=== PATIENT | female | born 1960 ===

== ENCOUNTER 2020-03-13 09:03 | Outpatient (REF) | payer BC, SELFPAY ==
--- NOTE | 2020-03-13 09:08 | XR_ITS ---
EXAMINATION: CR X-RAY BILATERAL KNEE 3 VIEW, STANDING CLINICAL INFORMATION: Bilateral knee pain. COMPARISON: None TECHNIQUE: Lateral and axial as well as standing AP views of both knees were obtained. FINDINGS: Mild tricompartmental degenerative joint changes are seen. There is no acute fracture, dislocation or joint effusion. The soft tissues are unremarkable. XR/XR knee RT 2V IMPRESSION: Mild tricompartmental degenerative joint changes bilaterally suggest mild osteoarthritis.
--- NOTE | 2020-03-13 09:08 | XR_ITS ---
EXAMINATION: CR X-RAY BILATERAL KNEE 3 VIEW, STANDING CLINICAL INFORMATION: Bilateral knee pain. COMPARISON: None TECHNIQUE: Lateral and axial as well as standing AP views of both knees were obtained. FINDINGS: Mild tricompartmental degenerative joint changes are seen. There is no acute fracture, dislocation or joint effusion. The soft tissues are unremarkable. XR/XR knee LT 2V IMPRESSION: Mild tricompartmental degenerative joint changes bilaterally suggest mild osteoarthritis.
--- NOTE | 2020-03-13 09:08 | XR_ITS ---
EXAMINATION: CR X-RAY BILATERAL KNEE 3 VIEW, STANDING CLINICAL INFORMATION: Bilateral knee pain. COMPARISON: None TECHNIQUE: Lateral and axial as well as standing AP views of both knees were obtained. FINDINGS: Mild tricompartmental degenerative joint changes are seen. There is no acute fracture, dislocation or joint effusion. The soft tissues are unremarkable. XR/XR knee standing BI IMPRESSION: Mild tricompartmental degenerative joint changes bilaterally suggest mild osteoarthritis.
== END 2020-03-13 09:04 | disposition home or self-care (01) ==
LOC: HO.HOSX 09:03
PROVIDERS: PCP Internal Medicine Endocrinology, Diabetes & Metabolism; Visit Provider Orthopaedic Surgery
DX: M25.562 Pain in left knee (principal); M25.561 Pain in right knee
CPT/HCPCS: 20610; 73560; 73565; J1040

== ENCOUNTER → 2020-08-23 10:41 | Outpatient (BNVA) | payer BC, SELFPAY | PROVIDERS: Visit Provider Orthopaedic Surgery | DX: M17.11 Unilateral primary osteoarthritis, right knee (principal) | CPT/HCPCS: 20610; J1040 ==

== ENCOUNTER 2023-01-25 12:27 | Outpatient (REF) | payer BC, SELFPAY ==
--- NOTE | ~2023-01-25 | XR_ITS ---
Examination: Bilateral knees TECHNIQUE: AP bilateral weightbearing, left and right knees lateral, sunrise views CLINICAL INFORMATION: pain COMPARISON: February 2020. FINDINGS: There is no significant narrowing of the joint space seen on weightbearing view. There is narrowing of patellofemoral compartments bilaterally with patellar spurring. There is no fracture or subluxation seen. There is no chondrocalcinosis. XR/XR knee standing BI IMPRESSION: Degenerative changes in the patellofemoral compartments bilaterally.
--- NOTE | ~2023-01-25 | XR_ITS ---
Examination: Bilateral knees TECHNIQUE: AP bilateral weightbearing, left and right knees lateral, sunrise views CLINICAL INFORMATION: pain COMPARISON: February 2020. FINDINGS: There is no significant narrowing of the joint space seen on weightbearing view. There is narrowing of patellofemoral compartments bilaterally with patellar spurring. There is no fracture or subluxation seen. There is no chondrocalcinosis. XR/XR knee RT 2V IMPRESSION: Degenerative changes in the patellofemoral compartments bilaterally.
--- NOTE | ~2023-01-25 | XR_ITS ---
Examination: Bilateral knees TECHNIQUE: AP bilateral weightbearing, left and right knees lateral, sunrise views CLINICAL INFORMATION: pain COMPARISON: February 2020. FINDINGS: There is no significant narrowing of the joint space seen on weightbearing view. There is narrowing of patellofemoral compartments bilaterally with patellar spurring. There is no fracture or subluxation seen. There is no chondrocalcinosis. XR/XR knee LT 2V IMPRESSION: Degenerative changes in the patellofemoral compartments bilaterally.
== END 2023-01-25 12:28 | disposition home or self-care (01) ==
LOC: HO.HOSX 12:27
PROVIDERS: Visit Provider Orthopaedic Surgery
DX: M17.0 Bilateral primary osteoarthritis of knee (principal); M25.461 Effusion, right knee; M25.462 Effusion, left knee
CPT/HCPCS: 73560; 73565

== ENCOUNTER 2023-01-25 14:26 | Outpatient (AMB) | payer BC, SELFPAY ==
--- NOTE | 2023-01-25 14:36 | A.OFFVIS_ITS ---
Intake Intake Visit Reasons: OV - B/L Knee OA Intake Note: Rody is a 62 year old female who presents today for a follow up of her bilateral knee OA. Last Injection in the right knee done 08/23/20 and bilaterally on 03/13/2020. Patient reports that the injections have been helpful. She explains that she is not here to have injections done but to discuss the status of the knees. She feels that the left knee especially has progressed. Allergies Beta-Blockers (Beta-Adrenergic Bloc Allergy (Verified 03/13/20 09:28) low blood pressure HPI OV - B/L Knee OA HPI Details Rody is a 62 year old woman who presents to discuss her bilateral knee OA. She was last seen by Dr. Hankins on 08/23/20 and received a right knee injection. She complains of pain with daily activity, worse with using stairs. She feels her left knee has gotten worse than her right since she was last seen. She walks using a cane and feels that her knees are swollen at times. She wears a knee brace occasionally when out of the house, which she finds helpful. She has a hx of relief from steroid injections in the past, but she would like to discuss how her knees have progressed. 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 Review of Systems Const All systems reviewed & are unremarkable except as noted in HPI and below Physical Exam Const General: no acute distress, alert and awake Orientation/consciousness: patient oriented x3 HEENT Head: Yes normocephalic and Yes atraumatic Eyes EOM: EOMs intact bilaterally Resp Effort & Inspection: normal respiratory effort and able to speak in complete sentences Cardio Jugular venous distension: no JVD Skin General skin exam: turgor normal Rashes: no rashes Neuro General: patient oriented x3 Extrem Other: Bilateral Knees: full ROM bilateral knees TTP medial compartments bilaterally Psych Appearance: grossly normal Affect: normal affect Attitude: cooperative Results Reviewed Results Reviewed: I personally reviewed relevant radiographs Mild- moderate bilateral knee OA Assessment & Plan Assessment & Plan (1) Primary osteoarthritis of knees, bilateral: Code(s): M17.0 - Bilateral primary osteoarthritis of knee Plan: This is a 62 year old woman with bilateral knee OA, L>R, with mild effusion. She has pain with daily activity, worse with using stairs. She ambulates with an assistive cane and has a hx of good relief from steroid injections done by Dr. Hankins in the past. She occasionally wears a knee brace. I discussed her diagnosis and treatment options. I recommend NSAIDs and she continue activity as tolerated. She declined any injections today, if her symptoms persist or worsen she can follow up to discuss injections. otherwisee she will follow up prn. (2) Bilateral knee effusions: Code(s): M25.461 - Effusion, right knee; M25.462 - Effusion, left knee Plan Scribed for Guillermo Barakat MD by Dar Riley, medical billing representative, on 01/25/23 at 2:55 PM, EST. Orders: Orders XR knee standing BI 01/25/23 M25.569 - Pain in unspecified knee XR knee RT 2V 01/25/23 M25.569 - Pain in unspecified knee XR knee LT 2V 01/25/23 M25.569 - Pain in unspecified knee Coding Level of Care Code Est Pt Level 3 (12062) Diagnoses Primary osteoarthritis of knees, bilateral M17.0 Bilateral knee effusions M25.461; M25.462
== END 2023-01-25 15:14 | disposition home or self-care (01) ==
PROVIDERS: PCP Pediatrics; Visit Provider Orthopaedic Surgery
DX: M17.0 Bilateral primary osteoarthritis of knee (principal); M25.461 Effusion, right knee; M25.462 Effusion, left knee
CPT/HCPCS: 99213

== ENCOUNTER 2023-06-10 08:52 | Outpatient (REF) | payer BC, SELFPAY ==
--- NOTE | ~2023-06-10 | XR_ITS ---
EXAMINATION: XR SHOULDER, LEFT CLINICAL INFORMATION: Left shoulder pain COMPARISON: Left shoulder x-ray on 05/03/2023 at [facility] TECHNIQUE: AP external rotation, Grashey, and axillary views of the left shoulder. FINDINGS: BONES: Bony structures are intact. A persistent semilunar shaped bone lesion is seen projecting from anterior cortex of proximal left humeral shaft measuring 1.3 cm in diameter. There is no focal bone destruction or periosteal reaction seen. JOINTS: Alignment of joints is normal. SOFT TISSUE: Soft tissue is normal. No radiopaque foreign body or abnormal air collection is seen. XR/XR shoulder LT min 2V IMPRESSION: 1. 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 2. No fracture or dislocation or signs of osteomyelitis are found.
== END 2023-06-10 08:53 | disposition home or self-care (01) ==
LOC: HO.HOSX 08:52
PROVIDERS: Visit Provider Orthopaedic Surgery
DX: M75.102 Unspecified rotator cuff tear or rupture of left shoulder, not specified as traumatic (principal)
CPT/HCPCS: 73030

== ENCOUNTER 2023-06-10 10:29 | Outpatient (AMB) | payer BC, SELFPAY ==
--- NOTE | 2023-06-10 10:37 | MHC.OFFVIS ---
Intake Vital Signs 06/10/23 10:42 Height 5 ft 4.25 in Weight 182 lb BMI 31.0 Handedness Right Intake Visit Reasons: Newprob- LT shoulder pain Allergies Beta-Blockers (Beta-Adrenergic Bloc Allergy (Verified 06/10/23 10:46) low blood pressure HPI Newprob- LT shoulder pain HPI Details Rody is a 63 year old right hand dominant female who presents today for a new problem visit with complaints of left shoulder pain. Patient reports an injury in March, she was cleaning the top of her fridge, when getting down she slipped and she braced herself from falling with the left arm. When catching herself she felt a large pop in the shoulder. She is having a burning pain in the shoulder and limited/painful ROM. She has been using [place] Patches and Tylenol with good relief. She has previously had therapy for her right shoulder so she did these exercises for the left shoulder at home. 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[employer] - [employer] Hand[employer] Physical Exam Vital Signs: BMI result Body Mass Index 31.0 Const General: cooperative, healthy appearing, no acute distress and well groomed Orientation/consciousness: oriented to person and oriented to place HEENT Head: Yes normal to inspection, Yes normocephalic and Yes atraumatic Eyes General: appearance normal, both eyes and all related structures Alignment and Position: alignment normal Conjunctivae: conjunctivae normal EOM: EOMs intact bilaterally Neck Neck: Yes normal visual inspection and Yes trachea midline Resp Other: No rerpiratory distress Effort & Inspection: normal respiratory effort and able to speak in complete sentences Cardio Other: Palpable radial pulse with no appreciable rythmic abnormalities GI Other: No abdominal distension Back/Spine/Pelvis Cervical Spine: normal cervical lordosis and cervical ROM normal Skin General skin exam: no rashes or lesions noted Neuro General: oriented to person, oriented to place and gait normal Extrem Other: Left shoulder with 4/5 EC ER to 45 Full passive ROM neg lift off Results Reviewed Results Reviewed: There is a retracted tear of the supraspinatus without atrophy. Infraspinatus and subscapularis with tendinopathy but no focal tearing. Assessment & Plan Assessment & Plan (1) Rotator cuff tear, left: Code(s): M75.102 - Unspecified rotator cuff tear or rupture of left shoulder, not specified as traumatic Plan: This is a 63 yo F with a left rotator cuff tear. She was asymptomatic prior to her fall. Her MRI shows a full thickness tear of the supraspinatus. There is no atrophy but it is retracted and I recommend left RTC repair. I described the possibility that the tear is chronic and unrepairable but this does not appear to be the case on MRI. I discussed the risks benefits and alternatives including but not limited to the risk of pain, infection, stiffness, need for further surgery as well as potential medical complications such as blood clots, pulmonary embolism and cardiac complications. She expressed understanding, Orders: Orders XR shoulder LT min 2V 06/10/23 M25.519 - Pain in unspecified shoulder Coding Level of Care Code Est Pt Level 4 (67744) Diagnoses Rotator cuff tear, left M75.102
[2023-06-10 10:42] VITALS: BMI 31.0
== END 2023-06-10 11:28 | disposition home or self-care (01) ==
PROVIDERS: PCP Family Medicine; Visit Provider Orthopaedic Surgery
DX: M75.102 Unspecified rotator cuff tear or rupture of left shoulder, not specified as traumatic (principal)
CPT/HCPCS: 99214

== ENCOUNTER 2023-06-30 13:16 | Outpatient (AMB) | payer BC, SELFPAY ==
--- NOTE | 2023-06-30 13:24 | MHC.OFFVIS ---
Vital Signs 06/30/23 13:26 Height 5 ft 4 in Weight 182 lb BMI 31.2 Intake Visit Reasons: Pre-Lt RTC Repair 07/06/23 NE Intake Note: Rody a 63 year old year old female who presents today for a preoperative left RTC repair on 07/06/23. Pain management agreement reviewed and signed. Allergies Beta-Blockers (Beta-Adrenergic Bloc Allergy (Intermediate, Verified 06/30/23 13:26) Hypotension shellfish derived Allergy (Intermediate, Verified 06/30/23 13:26) facial itching HPI HPI Pre-Lt RTC Repair 07/06/23 NE: Details: Rody a 63 year old year old female who presents today for a preoperative left RTC repair on 07/06/23. She has failed all conservative management and continues to have pain and weakness with daily activities. HPI Comments Details: Ms Licona presents to the office today for preop visit. She is scheduled for Left total shoulder arthroplasty with Dr. Barakat. She continues to have ongoing pain and difficulty with in the right shoulder, which is affecting her quality of life; therefore, she has elected to move forward with surgery. COUNTS INCLUDE 234 BEDS AT THE [facility] Medical History (Updated 06/24/23 @ 15:24 by Ania Perez RN) GERD (gastroesophageal reflux disease) Mixed hyperlipidemia Depression Sliding hiatal hernia Osteoarthritis Vertigo Hypertension Surgical History History of surgery on right wrist H/O colonoscopy S/P left knee arthroscopy History of tubal ligation (~1995) Hx of tonsillectomy Social History Are you a primary medicare compliance auditor to a significant other at home: No Do you presently have visiting nurse or other home services: No Patient Tobacco Use Status: Never used Tobacco Current occupational status: employed Current occupation: [place] [employer] - Right Handed Review of Systems Const All systems reviewed & are unremarkable except as noted in HPI and below Physical Exam Vital Signs: BMI result Body Mass Index 31.2 Const General: cooperative and no acute distress Orientation/consciousness: patient oriented x3 HEENT Head: Yes normal to inspection, Yes normocephalic and Yes atraumatic Eyes General: appearance normal, both eyes and all related structures Alignment and Position: alignment normal Conjunctivae: conjunctivae normal EOM: EOMs intact bilaterally Neck Neck: Yes normal visual inspection and Yes no lymphadenopathy Resp Other: No rerpiratory distress Effort & Inspection: normal respiratory effort and able to speak in complete sentences Cardio Other: Palpable radial pulse with no appreciable rythmic abnormalities Rate: regular rate Peripheral pulses: Peripheral pulses 2+ throughout GI Other: No abdominal distension Inspection: Yes normal to inspection Palpation (GI): Soft to palpation Back/Spine/Pelvis Cervical Spine: normal cervical lordosis and cervical ROM normal Skin General skin exam: no rashes or lesions noted Neuro General: patient oriented x3 Extrem Other: Left shoulder with 4/5 EC ER to 45 Full passive ROM neg lift off Psych Appearance: grossly normal Mental Status: mental status grossly normal Assessment & Plan Assessment & Plan (1) Rotator cuff tear, left: Code(s): M75.102 - Unspecified rotator cuff tear or rupture of left shoulder, not specified as traumatic Category: Medical Plan I explained the procedure in detail along with the length of recovery and rehab course. I explained the risk, benefits and alternatives. Risk including, but not limited to infection, blood clots, bleeding, ongoing pain and stiffness. I explained the use of the sling post op ie: 6 weeks. Discussed the importance of PT post op and performing pendulum exercises immediately after surgery. I answered all their questions and with their understanding they have consented to move forward with Rotator cuff repair left shoulder with Dr Barakat. Her postop medication was sent to the pharmacy. She was also fit for a sling in the office today. Orders: Orders PT Evaluation and Treatment 06/30/23 M75.102 - Unspecified rotator cuff tear or rupture of left shoulder, not specified as traumatic Medications: New acetaminophen 650 mg (2 x 325 mg) PO Q4-6H PRN 240 tabs 0RF fever or pain 30 days oxycodone Partial Fill upon patient request. 5 mg PO Q6H PRN 42 tabs 0RF pain 7 days Z96.652 - Presence of left artificial knee joint morphine ER (MS Contin) Partial Fill upon patient request. 15 mg PO Q12H 6 tabs 0RF 3 days Patient Instructions: Scribed for John Harden PA-C, by Steven Noe medical esthetician, on 06/30/2023 at 1:15 PM EST. IJohn PA-C, have personally reviewed and agree with the information entered by the scribe.
[2023-06-30 13:26] VITALS: BMI 31.2
== END 2023-06-30 13:55 | disposition home or self-care (01) ==
PROVIDERS: PCP Family Medicine; Visit Provider Physician Assistant
DX: M75.102 Unspecified rotator cuff tear or rupture of left shoulder, not specified as traumatic (principal)
CPT/HCPCS: 99024

== ENCOUNTER → 2023-06-30 13:16 | Outpatient (BNVA) | payer BC, SELFPAY | PROVIDERS: PCP Family Medicine; Visit Provider Physician Assistant ==

== ENCOUNTER 2023-07-06 09:18 | Day surgery (SDC) | payer BC, SELFPAY ==
[2023-06-24 15:24] VITALS: BMI 31.0
--- NOTE | 2023-07-05 11:50 | HO.ANESPROP2 ---
Documented by User: Jeanette Oseguera NP 07/05/23 11:50 HPI - Anesthesia Eval Consult details Narrative: 63yo F for Left Shoulder Rotator Cuff Repair PMFSH Active Problems Active Problems: All Active Problems Rotator cuff tear, left (Acute) Bilateral knee effusions (Acute) Primary osteoarthritis of right knee (Acute) Primary osteoarthritis of knees, bilateral (Acute) Past Medical History Medical History (Updated 06/24/23 @ 15:24 by Ania Perez RN) GERD (gastroesophageal reflux disease) Mixed hyperlipidemia Depression Sliding hiatal hernia Osteoarthritis Vertigo Hypertension Surgical History Surgical History History of surgery on right wrist H/O colonoscopy S/P left knee arthroscopy History of tubal ligation (~1995) Hx of tonsillectomy Social History Social History Are you a primary pharmacy customer care specialist to a significant other at home: No Do you presently have visiting nurse or other home services: No Patient Tobacco Use Status: Never used Tobacco Use of substances other than those prescribed or required for medical reasons: No Have you been hit, kicked, punched, or otherwise hurt by someone within the past year? 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 [employer] Allergies Allergy/AdvReac Type Severity Reaction Status Date / Time Beta-Blockers Allergy Intermediate Hypotension Verified 06/30/23 13:26 (Beta-Adrenergic Bloc shellfish derived Allergy Intermediate facial Verified 06/30/23 13:26 itching Home Medications ?Medication ?Instructions ?Recorded ?Confirmed ?Last Taken ?Type meclizine 50 mg tablet 50 mg PO DAILY PRN Vertigo 03/13/20 06/24/23 Unknown History hydrochlorothiazide 25 mg tablet 12.5 mg PO QAM 01/25/23 06/24/23 Unknown History ascorbic acid (vitamin C) 500 mg 500 mg PO QAM 06/24/23 06/24/23 Unknown History tablet (Vitamin C) atorvastatin 10 mg tablet 10 mg PO BEDTIME 06/24/23 06/24/23 Unknown History flaxseed oil 1,000 mg capsule 1,000 mg PO BID 06/24/23 06/24/23 Unknown History lisinopril 30 mg tablet 30 mg PO QAM 06/24/23 06/24/23 Unknown History multivitamin 1 tab PO QAM 06/24/23 06/24/23 Unknown History Exam Height,Weight and Vital Signs: Height 5 ft 4.25 in Weight 82.554 kg Assessment and Plan Assessment Anesthesia Assessment: Chart Reviewed Documented by User: Dany Wan MD 07/06/23 14:37 [facility] Past Medical History Medical History (Updated 06/24/23 @ 15:24 by Ania Perez RN) GERD (gastroesophageal reflux disease) Mixed hyperlipidemia Depression Sliding hiatal hernia Osteoarthritis Vertigo Hypertension Family History Family history of problems with anesthesia: No Surgical History Surgical History History of surgery on right wrist H/O colonoscopy S/P left knee arthroscopy History of tubal ligation (~1995) Hx of tonsillectomy History of Problems with Anesthesia: No Social History Social History Are you a primary pharmacy customer care specialist to a significant other at home: No Do you presently have visiting nurse or other home services: No Patient Tobacco Use Status: Never used Tobacco Use of substances other than those prescribed or required for medical reasons: No Have you been hit, kicked, punched, or otherwise hurt by someone within the past year? 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 Allergies Allergy/AdvReac Type Severity Reaction Status Date / Time Beta-Blockers Allergy Intermediate Hypotension Verified 06/30/23 13:26 (Beta-Adrenergic Bloc shellfish derived Allergy Intermediate facial Verified 06/30/23 13:26 itching Home Medications ?Medication ?Instructions ?Recorded ?Confirmed ?Last Taken ?Type meclizine 50 mg tablet 50 mg PO DAILY PRN Vertigo 03/13/20 06/24/23 Unknown History hydrochlorothiazide 25 mg tablet 12.5 mg PO QAM 01/25/23 06/24/23 Unknown History ascorbic acid (vitamin C) 500 mg 500 mg PO QAM 06/24/23 06/24/23 Unknown History tablet (Vitamin C) atorvastatin 10 mg tablet 10 mg PO BEDTIME 06/24/23 06/24/23 Unknown History flaxseed oil 1,000 mg capsule 1,000 mg PO BID 06/24/23 06/24/23 Unknown History lisinopril 30 mg tablet 30 mg PO QAM 06/24/23 06/24/23 Unknown History multivitamin 1 tab PO QAM 06/24/23 06/24/23 Unknown History Exam Airway Mallampati Class: II TM Dist: >3cm Neck ROM: Full Loose/Missing/Broken Teeth: No Assessment and Plan Assessment Anesthesia Assessment: Anesthesia Plan Discussed Final Anesthetic Review Family History of Problems with Anesthesia: No History of Problems with Anesthesia: No NPO: Yes ASA Class: II Final Preanesthetic Review: No Changes in Pt Med Stat, Meds/Allgs Chart Reviewed, Consent Obtained/Reviewed and Anes Risks/Benef Reviewed Patient Risk: Low Procedure Risk: Intermediate Anesthetic Plan Anesthetic Plan: GA and Regional Block Disposition: Standard PACU
[2023-07-06] VITALS (8 sets, daily range): BP systolic 115–135; BP diastolic 60–74; PULSE 68–73; RESP 16; TEMP 36.2–37.1; O2SAT 94–99; BMI 31.5
--- NOTE | 2023-07-06 10:01 | ECG_ITS ---
Test Reason : htn preop Blood Pressure : / mmHG Vent. Rate : 067 BPM Atrial Rate : 067 BPM P-R Int : 156 ms QRS Dur : 078 ms QT Int : 394 ms P-R-T Axes : 033 021 012 degrees QTc Int : 416 ms Normal sinus rhythm Normal ECG No previous ECGs available Referred By: Jeanette Oseguera Electronically Signed By:EMMA MINOR MD
--- NOTE | 2023-07-06 10:22 | MHC.SHP ---
Pre-Procedural Eval Section A - 24 Hr Update-Section A only Date of Service: 07/06/23 The patient is an INPATIENT: No Changes since office visit: No Cold of Flu in the past 2 weeks, No New Medical Problems, No Changes in Medication and No Patient answered all questions The patient has been examined within 24 hours of the surgical procedure. The History & Physical has been completed within 30 days and I have reviewed it.: Yes Section B - Complete if H&P > 30 days Chief Complaint: Unspecified rotator cuff tear or rupture of left s Allergies: Allergies Allergy/AdvReac Type Severity Reaction Status Date / Time Beta-Blockers Allergy Intermediate Hypotension Verified 06/30/23 13:26 (Beta-Adrenergic Bloc shellfish derived Allergy Intermediate facial Verified 06/30/23 13:26 itching Plan I have reviewed the history and physical and performed a pertinent physical examination on my patient. No changes have occurred unless specified. Time Spent With Patient Time: Total time managing care of this patient today ____ minutes.
[2023-07-06 10:26] LABS: Hematocrit 40.4 % (37.0-47.0); Hemoglobin 14.1 g/dl (12.0-16.0); Mean Corpuscular HGB Conc 34.9 g/dl (31.0-35.0); Mean Corpuscular Volume 91.6 fL (80.0-98.0); Mean Platelet Volume 9.4 fL (9.4-12.3); Platelet Count 223 X10*3/uL (160-400); Red Blood Count 4.41 X10*6/uL (4.20-5.50); Red Cell Distribution Width 12.9 % (11.0-16.0); White Blood Count 6.5 X10*3/uL (4.8-10.8)
[2023-07-06] MEDS: Lactated Ringers 1,000 ML 100 ML IVCONT (10:37)
[2023-07-06 10:41] LABS: Anion Gap 13 (12-20); Blood Urea Nitrogen 15 mg/dL (9-16); Calcium 9.7 mg/dL (8.4-10.2); Carbon Dioxide 29 mmol/L (22-29); Chloride 106 mmol/L (96-108); Creatinine Clr Calc Pharmacy 75.4; Estimated Glomerular Filt Rate > 60; Glucose Fasting 105 mg/dL (60-99); Potassium 4.5 mmol/L (3.3-5.1); Sodium 143 mmol/L (135-145)
--- NOTE | 2023-07-06 14:10 | PM.OP ---
Brief Operative Note Date of Service: 07/06/23 Pre-op diagnosis: Left RTC tear Post-op diagnosis: same Procedure: Left RTC repair with SAD Implants: [employer] triple loaded Helacoil x 2, knotless Helacoil x 3, Regeneten medium bioinductive collagen allograft Surgeon: Guillermo Barakat MD Anesthesia: GETA Was an Data Entry Email Processor used for this Procedure?: Yes Data Entry Email Processor: Rosy Harris Estimated blood loss (mL): 20 IV fluids (mL): 1,200 Pathology: none sent Condition: stable Disposition: PACU
[2023-07-06] MEDS: oxyCODONE HCl Immed Release 5 MG TABLET PO (15:17)
[2023-07-06] MEDS: Ketorolac Tromethamine 15 MG/ML VIAL IVPUSH (15:22)
--- NOTE | 2023-07-12 08:20 | P.OP_ITS ---
Operative Note Operative Note Date of Service: 07/06/23 Narrative: Date of Service: 07/06/23 Pre-op diagnosis: Left RTC tear Post-op diagnosis: same Procedure: Left RTC repair with SAD Implants: [employer]hew triple loaded Helacoil x 2, knotless Helacoil x 3, Regeneten medium bioinductive collagen allograft Surgeon: Guillermo Barakat MD Anesthesia: GETA Was an Manager Investigations used for this Procedure?: Yes Manager Investigations: Rosy Harris Estimated blood loss (mL): 20 IV fluids (mL): 1,200 Pathology: none sent Condition: stable Disposition: PACU Procedure in detail: Patient was brought to the operating room and placed the the beach chair position. All bony prominences were well padded and the limb was prepped and draped in standard sterile fashion. A time out was called to identify proper site, proper procedure and proper surgeon. IV antibiotics per weight were administered. I began by making a posterolateral stab incision with a 15 blade. A blunt trochar was placed into the glenohumeral joint and I insufflated the joint with saline and a 30 degree arthroscope was placed. I established an outside- in anterior portal just distal to the biceps tendon. I then began my inspection of the glenohumeral joint. There was an intact biceps anchor ( Type 2). There were minimal cartilage changes at the inferior glenoid without humeral head changes. There was a full thickness undersurface RTC tear. The subcapularis was intact. I debrided the loose cartilage of the glenoid and the degenerative labral tearing with a combination of shaver and cautery wand. I then removed the trochar and entered the subacromial space. A direct lateral portal was then established and I performed a bursectomy. The cuff was then examined. There was a full thickness tear of the supra and infraspinatus with retraction. The tear was mobile. I placed two medial row tripled loaded anchors after using a tap just adjacent to the articular cartilage and then brought the suture limbs (12) through the medial cuff. I then debrided the bare area down to bleeding bone and, using a cross bridge configuration, brought 4 limbs to each of three lateral 5.0 anchors. This re-approximated the cuff anatomy anatomically. Her tissue quality was poor howevere and so I elected to place a Regeneten bioinductive collagen allograft. A medium graft was selected and this was placed via a lateral portal. PEEK arabella were used to cover the tndon-bone junction, No bone arabella were needed. Once I was satisfied with the repair and the allograft position, final images were captured and I removed all instrumentation. Portals were closed with nylon. Patient was placed in an abduction sling, extubated and brought to the recovery room in stable condition. There were no known complications. Large repair protocol
== END 2023-07-06 16:00 | disposition home or self-care (01) ==
LOC: HO.SSS 09:19
PROVIDERS: Nurse Practitioner; PCP Family Medicine; Visit Provider Orthopaedic Surgery
PROC: (CPT 29805; principal; 2023-07-06 11:40)
DX: S46.012A Strain of muscle(s) and tendon(s) of the rotator cuff of left shoulder, initial encounter (principal); W18.49XA Other slipping, tripping and stumbling without falling, initial encounter; Y93.E9 Activity, other interior property and clothing maintenance; Y92.010 Kitchen of single-family (private) house as the place of occurrence of the external cause; Y99.8 Other external cause status; M17.0 Bilateral primary osteoarthritis of knee; I10 Essential (primary) hypertension; E78.2 Mixed hyperlipidemia; R42 Dizziness and giddiness; Z79.899 Other long term (current) drug therapy
CPT/HCPCS: 29827; 29826; 36415; 80048; 85027; 93005; C1713; C1763; J0131; J0690; J1100; J1885; J2250; J2405; J2704; J2795; J3010

== ENCOUNTER → 2023-07-06 09:18 | Outpatient (BNV) | payer BC, SELFPAY | PROVIDERS: PCP Family Medicine; Visit Provider Orthopaedic Surgery | DX: S46.012A Strain of muscle(s) and tendon(s) of the rotator cuff of left shoulder, initial encounter (principal) | CPT/HCPCS: 29827 ==

== ENCOUNTER → 2023-07-06 10:01 | Outpatient (BNV) | payer BC, SELFPAY | PROVIDERS: PCP Family Medicine; Visit Provider Internal Medicine Cardiovascular Disease | DX: I10 Essential (primary) hypertension (principal); Z01.810 Encounter for preprocedural cardiovascular examination; M75.102 Unspecified rotator cuff tear or rupture of left shoulder, not specified as traumatic | CPT/HCPCS: 93010 ==

== ENCOUNTER 2023-07-15 12:48 | Outpatient (AMB) | payer BC, SELFPAY ==
--- NOTE | 2023-07-15 12:53 | A.OFFVIS_ITS ---
Intake Visit Reasons: PO-Lt RTC Repair 07/06/23 NE Intake Note: Rody 63 yr old female presents today for her P/O visit for her left RTC repair from 07/06/23. States she is having mild pain and soreness. Allergies Beta-Blockers (Beta-Adrenergic Bloc Allergy (Intermediate, Verified 07/15/23 12:57) Hypotension shellfish derived Allergy (Intermediate, Verified 07/15/23 12:57) facial itching HPI HPI PO-Lt RTC Repair 07/06/23 NE: Details: 63-year-old female who returns to the office today for post-op left RTC repair, 07/06/[address] Barakat. She states she has improvement in her pain however she does experiences mild pain and soreness in her shoulder. She has no concerns today. [facility] Medical History (Updated 06/24/23 @ 15:24 by Ania Perez RN) GERD (gastroesophageal reflux disease) Mixed hyperlipidemia Depression Sliding hiatal hernia Osteoarthritis Vertigo Hypertension Surgical History History of surgery on right wrist H/O colonoscopy S/P left knee arthroscopy History of tubal ligation (~1995) Hx of tonsillectomy Social History Are you a primary neonatal intensive care unit nurse to a significant other at home: No Do you presently have visiting nurse or other home services: No Comment: pt was medicated Patient Tobacco Use Status: Never used Tobacco Current occupational status: employed Current occupation: [employer] - Right Handed Review of Systems Const All systems reviewed & are unremarkable except as noted in HPI and below Physical Exam Extrem Other: Left shoulder: Incision clean, dry and intact. No erythema or drainage. Anterior deltoid sensation intact. She has full ROM of elbow and wrist. NVI. Results Reviewed Results Reviewed: Brief Operative Note Date of Service: 07/06/23 Pre-op diagnosis: Left RTC tear Post-op diagnosis: same Procedure: Left RTC repair with SAD Implants: [employer]hew triple loaded Helacoil x 2, knotless Helacoil x 3, Regeneten medium bioinductive collagen allograft Surgeon: Guillermo Barakat MD Assessment & Plan Assessment & Plan (1) Rotator cuff tear, left: Code(s): M75.102 - Unspecified rotator cuff tear or rupture of left shoulder, not specified as traumatic Category: Medical (2) S/P left rotator cuff repair: Code(s): Z98.890 - Other specified postprocedural states Category: Surgical Plan Sutures removed today, steri strips applied. She will begin physical therapy tomorrow. She will wear her sling at all times except for hygiene and physical therapy exercises. She will refrain from any type of activities away from body or overhead and see us back in [address] Barakat, sooner if needed. Patient Instructions: Scribed for John Harden PA-C, by Steven Noe outside medical sales representative, on 07/15/2023 at 1:00 PM EST. I, John Harden PA-C, have personally reviewed and agree with the information entered by the scribe. Coding Level of Care Code Global (16422) Diagnoses Rotator cuff tear, left M75.102 S/P left rotator cuff repair Z98.890
== END 2023-07-15 13:09 | disposition home or self-care (01) ==
PROVIDERS: PCP Family Medicine; Visit Provider Physician Assistant
DX: M75.102 Unspecified rotator cuff tear or rupture of left shoulder, not specified as traumatic (principal); Z98.890 Other specified postprocedural states
CPT/HCPCS: 99024

== ENCOUNTER → 2023-07-15 12:48 | Outpatient (BNVA) | payer BC, SELFPAY | PROVIDERS: PCP Family Medicine; Visit Provider Physician Assistant ==

== ENCOUNTER 2023-08-12 10:20 | Outpatient (AMB) | payer BC, SELFPAY ==
--- NOTE | 2023-08-12 10:25 | MHC.OFFVIS ---
Vital Signs 08/12/23 10:26 Height 5 ft 4 in Weight 183 lb BMI 31.4 Intake Visit Reasons: PO-Lt RTC Repair 07/06/23 NE-follow up Intake Note: Rody is a 63 year old right hand dominant female who presents today for a 6 week follow up s/p Left RTC Repair 07/06/23. Patient reports that she is doing well, she has increased pain after physical therapy. Denies numbness and tingling. No present concerns. Allergies Beta-Blockers (Beta-Adrenergic Bloc Allergy (Intermediate, Verified 08/12/23 10:27) Hypotension shellfish derived Allergy (Intermediate, Verified 08/12/23 10:27) facial itching HPI HPI PO-Lt RTC Repair 07/06/23 NE-follow up: Details: Rody is a 63 year old right hand dominant female who presents today for a 6 week follow up s/p Left RTC Repair 07/06/23. Patient reports that she is doing well, she has increased pain after physical therapy. Denies numbness and tingling. No present concerns. [facility] Medical History (Updated 06/24/23 @ 15:24 by Ania Perez RN) GERD (gastroesophageal reflux disease) Mixed hyperlipidemia Depression Sliding hiatal hernia Osteoarthritis Vertigo Hypertension Surgical History History of surgery on right wrist H/O colonoscopy S/P left knee arthroscopy History of tubal ligation (~1995) Hx of tonsillectomy Social History Are you a primary personal care service provider to a significant other at home: No Do you presently have visiting nurse or other home services: No Comment: pt was medicated Patient Tobacco Use Status: Never used Tobacco Current occupational status: employed Current occupation: [employer] [place] - Right Handed Physical Exam Vital Signs: BMI result Body Mass Index 31.4 Extrem Other: portals c/d/i ER to 0 deg NVI Assessment & Plan Assessment & Plan (1) S/P left rotator cuff repair: Code(s): Z98.890 - Other specified postprocedural states Category: Surgical Plan: Lg repair protocol OK to RTW 08/22 no lifting f/u 6 weeks Coding Level of Care Code Global (01679) Diagnoses S/P left rotator cuff repair Z98.890
[2023-08-12 10:26] VITALS: BMI 31.4
== END 2023-08-12 10:37 | disposition home or self-care (01) ==
PROVIDERS: PCP Family Medicine; Visit Provider Orthopaedic Surgery
DX: Z98.890 Other specified postprocedural states (principal)
CPT/HCPCS: 99024

== ENCOUNTER → 2023-08-12 10:20 | Outpatient (BNVA) | payer BC, SELFPAY | PROVIDERS: PCP Family Medicine; Visit Provider Orthopaedic Surgery ==

== ENCOUNTER 2023-09-23 13:01 | Outpatient (AMB) | payer BC, SELFPAY ==
--- NOTE | 2023-09-23 13:11 | MHC.OFFVIS ---
Vital Signs 09/23/23 13:13 Height 5 ft 4 in Weight 183 lb BMI 31.4 Intake Visit Reasons: PO-Lt RTC Repair 07/06/23 NE-follow up Intake Note: Rody is a 63 year old right hand dominant female who presents today for a post operative visit s/p Left RTC Repair 07/06/23. Patient reports that she is having continued aching in the anterior aspect of the shoulder. She also complains of weaknes and shaking of the arm. She has limist ROM above the shoulder. Allergies Beta-Blockers (Beta-Adrenergic Bloc Allergy (Intermediate, Verified 09/23/23 13:13) Hypotension shellfish derived Allergy (Intermediate, Verified 09/23/23 13:13) facial itching HPI HPI PO-Lt RTC Repair 07/06/23 NE-follow up: Details: Rody is a 63 year old right hand dominant female who presents today for a post operative visit s/p Left RTC Repair 07/06/23. Patient reports that she is having continued aching in the anterior aspect of the shoulder. She also complains of weaknes and shaking of the arm. She has limist ROM above the shoulder. [facility] Medical History GERD (gastroesophageal reflux disease) Mixed hyperlipidemia Depression Sliding hiatal hernia Osteoarthritis Vertigo Hypertension Surgical History History of surgery on right wrist H/O colonoscopy S/P left knee arthroscopy History of tubal ligation (~1995) Hx of tonsillectomy Social History Are you a primary respiratory care practitioner to a significant other at home: No Do you presently have visiting nurse or other home services: No Comment: pt was medicated Patient Tobacco Use Status: Never used Tobacco Current occupational status: employed Current occupation: [employer] at [place] - Right Handed Physical Exam Vital Signs: BMI result Body Mass Index 31.4 Extrem Other: portals c/d/i minimal pain Assessment & Plan Assessment & Plan (1) S/P left rotator cuff repair: Code(s): Z98.890 - Other specified postprocedural states Category: Surgical Plan: Doing well. follow up 3 mo precautions outlined. Coding Level of Care Code Global (17523) Diagnoses S/P left rotator cuff repair Z98.890
[2023-09-23 13:13] VITALS: BMI 31.4
== END 2023-09-23 13:36 | disposition home or self-care (01) ==
PROVIDERS: PCP Family Medicine; Visit Provider Orthopaedic Surgery
DX: Z98.890 Other specified postprocedural states (principal)
CPT/HCPCS: 99024

== ENCOUNTER → 2023-09-23 13:01 | Outpatient (BNVA) | payer BC, SELFPAY | PROVIDERS: PCP Family Medicine; Visit Provider Orthopaedic Surgery ==

== ENCOUNTER 2023-11-25 17:00 | Outpatient (RCR) | payer BC, SELFPAY ==
--- NOTE | 2023-07-16 11:58 | MHC.PT.EP ---
[facility] [place] Office [place] Office [place] Office [address] Angela Mahajan [address] [phone] F: [phone] F: [phone] F: [phone] F: [phone] Physical Therapy Plan of Care Date of Evaluation: 07/16/23 Date of Surgery: 07/06/23 Diagnosis: s/p LEFT large tear rotator cuff repair of supraspinatus and infraspinatus (DOS: 07/06/23) (RS) Assessment: Patient is a pleasant 63 y.o. female who is referred to PT by John Harden PA-C, surgery performed by Dr. Guillermo Barakat MD, with Dx of s/p LEFT large tear rotator cuff repair of supraspinatus and infraspinatus (DOS: 07/06/23). Patient impairments include pain, swelling, healing incision sites, limited ROM, weakness. Patient current functional limitations are unable to lift, reach, get dressed, cooking, cleaning, bathing. Patient will benefit from skilled PT to address aforementioned impairments and functional limitations to meet established goals. Frequency and Duration: The patient will be seen 2x/week for 8 weeks Short Term Goals: 4 weeks Patient demonstrates consistency and independence with HEP to self manage symptoms. Patient presents with increased PROM shoulder flexion 120 degrees to reduce adhesive capsulitis Range Feeder Goals: 8 weeks Patient presents with increased L shoulder flexion AROM 140 degrees to be able to comb/wash her hair independently. Patient presents with increased L shoulder ER 60 degrees to ba able to get dressed independently. Treatment Plan: Modalities to reduce pain, spasms and effusion. Manual therapy to restore motion and function. Therapeutic exercise to improve strength and flexibility. Neuromuscular re-education for posture and balance. Therapeutic activities to return to functional activities of daily living. Electronically signed by: Tin Frank, PT, DPT Please sign and return to therapist. Thank you for your referral.
--- NOTE | 2024-01-11 09:38 | MHC.PT.DC ---
[facility] [place] Office [place] Office [place] Office [address] Angela Mahajan [address] [phone] F: [phone] F: [phone] F: [phone] F: [phone] Physical Therapy Discharge Report Diagnosis: s/p LEFT large tear rotator cuff repair of supraspinatus and infraspinatus (DOS: 07/06/23) (RS) Date of Surgery: 07/06/23 Date of Evaluation: 07/16/23 Date of Discharge: 01/11/24 Treatments to Date: 33 Cancellations to Date: No Shows to Date: Discharge Status: Achieved Goals Improved Function Independent with HEP Patient Elected to Stop Discharge Summary: Rody ceased attending PT on her own accord. On her last session 11/25/23 the assessment reads, Rody is making slow and steady gains in AAROM, has been able to tolerate adding more strengthening exercises into her program and cutting out manual therapy from her program to build more strength and endurance. She is discharged from PT at this time. Electronically signed by: Tin Frank, PT, DPT Please sign and return to therapist. Thank you for your referral.
== END 2024-01-11 09:38 | disposition home or self-care (01) ==
LOC: HO.PT 17:00
PROVIDERS: PCP Family Medicine; Visit Provider Physician Assistant
DX: M75.102 Unspecified rotator cuff tear or rupture of left shoulder, not specified as traumatic (principal)
CPT/HCPCS: 97110; 97140; 97161; 97530; 97535

== ENCOUNTER 2023-12-23 08:48 | Outpatient (AMB) | payer BC, SELFPAY ==
--- NOTE | 2023-12-23 08:50 | MHC.OFFVIS ---
Vital Signs 12/23/23 08:51 Height 5 ft 4 in Weight 183 lb BMI 31.4 Intake Visit Reasons: OV-Lt RTC Repair 07/06/23 NE-follow up Intake Note: Rody is a 63 year old right hand dominant female who presents today for a post operative visit s/p Left RTC Repair 07/06/23. Patient reports that she is doing well and only has some mild pain that is relieved with stretching. She does however have significantly limited above shoulder height ROM. Allergies Beta-Blockers (Beta-Adrenergic Bloc Allergy (Intermediate, Verified 12/23/23 08:54) Hypotension shellfish derived Allergy (Intermediate, Verified 12/23/23 08:54) facial itching HPI HPI OV-Lt RTC Repair 07/06/23 NE-follow up: Details: Rody is a 63 year old right hand dominant female who presents today for a post operative visit s/p Left RTC Repair 07/06/23. Patient reports that she is doing well and only has some mild pain that is relieved with stretching. She does however have significantly limited above shoulder height ROM. [facility] Medical History GERD (gastroesophageal reflux disease) Mixed hyperlipidemia Depression Sliding hiatal hernia Osteoarthritis Vertigo Hypertension Surgical History History of surgery on right wrist H/O colonoscopy S/P left knee arthroscopy History of tubal ligation (~1995) Hx of tonsillectomy Social History Are you a primary respiratory care practitioner to a significant other at home: No Do you presently have visiting nurse or other home services: No Comment: pt was medicated Patient Tobacco Use Status: Never used Tobacco Current occupational status: employed Current occupation: [employer] [place] - Right Handed Physical Exam Vital Signs: BMI result Body Mass Index 31.4 Extrem Other: 80 degrees of abduction and 110 degrees of forward flexion. External rotation to 20 degrees. Assessment & Plan Assessment & Plan (1) S/P left rotator cuff repair: Code(s): Z98.890 - Other specified postprocedural states Category: Surgical Plan: Status post large rotator cuff repair with graft augmentation. She has minimal pain and her range of motion is improving although limited in activities above the shoulder. She is working doing home exercise and I recommend working on passive abduction in scapular mechanics as per her physical therapy protocol. Follow up in 3 months. Coding Level of Care Code Est Pt Level 3 (35693) Diagnoses S/P left rotator cuff repair Z98.890
[2023-12-23 08:51] VITALS: BMI 31.4
== END 2023-12-23 08:59 | disposition home or self-care (01) ==
PROVIDERS: PCP Family Medicine; Visit Provider Orthopaedic Surgery
DX: S46.012D Strain of muscle(s) and tendon(s) of the rotator cuff of left shoulder, subsequent encounter (principal)
CPT/HCPCS: 99213

== ENCOUNTER → 2023-12-23 08:48 | Outpatient (BNVA) | payer BC, SELFPAY | PROVIDERS: PCP Family Medicine; Visit Provider Orthopaedic Surgery ==

== ENCOUNTER 2024-03-30 09:12 | Outpatient (AMB) | payer BC, SELFPAY ==
--- NOTE | 2024-03-30 09:13 | MHC.OFFVIS ---
Vital Signs 03/30/24 09:14 Height 5 ft 4 in Weight 183 lb BMI 31.4 Intake Visit Reasons: OV-Lt RTC Repair 07/06/23 NE-follow up Intake Note: Rody is a 63 year old right hand dominant female who presents today for a post operative visit s/p Left Large RTC Repair with graft augmentation 07/06/23. Patient has been improving with minimal pain but limited above the head ROM - she has completed physical therapy and does minimal home exercise program. Allergies Beta-Blockers (Beta-Adrenergic Bloc Allergy (Intermediate, Verified 12/23/23 08:54) Hypotension shellfish derived Allergy (Intermediate, Verified 12/23/23 08:54) facial itching HPI HPI OV-Lt RTC Repair 07/06/23 NE-follow up: Details: Rody is a 63 year old right hand dominant female who presents today for a post operative visit s/p Left Large RTC Repair with graft augmentation 07/06/23. Patient has been improving with minimal pain but limited above the head ROM - she has completed physical therapy and does minimal home exercise program. [facility] Medical History GERD (gastroesophageal reflux disease) Mixed hyperlipidemia Depression Sliding hiatal hernia Osteoarthritis Vertigo Hypertension Surgical History History of surgery on right wrist H/O colonoscopy S/P left knee arthroscopy History of tubal ligation (~1995) Hx of tonsillectomy Social History Are you a primary hospice care sales consultant to a significant other at home: No Do you presently have visiting nurse or other home services: No Comment: pt was medicated Patient Tobacco Use Status: Never used Tobacco Current occupational status: employed Current occupation: [employer] at [place] - Right Handed Physical Exam Vital Signs: BMI result Body Mass Index 31.4 Extrem Other: neg EC no pain Assessment & Plan Assessment & Plan (1) S/P left rotator cuff repair: Code(s): Z98.890 - Other specified postprocedural states Category: Surgical Plan: Status post large rotator cuff repair doing well. Slightly diminished overhead motion which is to be expected. Continue activity as tolerated and may follow up as needed. Coding Level of Care Code Est Pt Level 3 (59082) Diagnoses S/P left rotator cuff repair Z98.890
[2024-03-30 09:14] VITALS: BMI 31.4
== END 2024-03-30 09:32 | disposition home or self-care (01) ==
PROVIDERS: PCP Family Medicine; Visit Provider Orthopaedic Surgery
DX: S46.012D Strain of muscle(s) and tendon(s) of the rotator cuff of left shoulder, subsequent encounter (principal)
CPT/HCPCS: 99213

== ENCOUNTER → 2024-03-30 09:12 | Outpatient (BNVA) | payer BC, SELFPAY | PROVIDERS: PCP Family Medicine; Visit Provider Orthopaedic Surgery ==